=== PATIENT | female | born 1990 | race Two or more races ===

== ENCOUNTER 2024-04-15 19:06 | Inpatient (IN) | payer OTHER ==
[~2024-04-15] VITALS: Ht 165.1 cm; Wt 111.4 kg
[2024-04-15 20:18] LABS: BASOPHILS % (AUTO) 0.1 % (0.0-2.0); EOSINOPHILS % (AUTO) 0.3 % (1.0-6.0); HEMATOCRIT 33.8 % (36-46); HEMOGLOBIN 10.8 g/dL (12.0-16.0); LYMPHOCYTES # (AUTO) 2.2 K/uL (1.0-4.8); LYMPHOCYTES % (AUTO) 14.5 % (22.0-44.0); MEAN CORPUSCULAR HEMOGLOBIN 23.2 pg (26.0-34.0); MEAN CORPUSCULAR VOLUME 73 fL (80-100); MONOCYTES # (AUTO) 0.8 K/uL (0.1-1.0); MONOCYTES % (AUTO) 5.4 % (2.0-9.0); NEUTROPHILS # (AUTO) 12.1 K/uL (1.8-7.7); NEUTROPHILS % (AUTO) 79.7 % (40.0-70.0); PLATELET COUNT (AUTO) 323 K/uL (150-450); RED BLOOD CELL COUNT(AUTO) 4.66 MIL/uL (4.00-5.20); RED CELL DISTRIBUTION WIDTH 19.1 % (11.5-14.5); WHITE BLOOD COUNT (AUTO) 15.2 K/uL (4.5-11.0)
[2024-04-15 20:31] LABS: ANION GAP 8 mmol/L (8-16); CALCIUM, TOTAL 8.4 mg/dL (8.8-10.5); CARBON DIOXIDE 27 mmol/L (22-29); CHLORIDE 103 mmol/L (98-107); CREATININE 0.56 mg/dL (0.60-1.30); GLOMERULAR FILTR. RATE CALC > 60 mL/min (>60); GLUCOSE,RANDOM 100 mg/dL (70-110); SODIUM SERUM 138 mmol/L (136-145); UREA NITROGEN, BLOOD 7 mg/dL (7-18)
[2024-04-15 22:45] VITALS: BP 105/97; PULSE 78; RESP 18; TEMP 98.1; O2SAT 95
[2024-04-16] MEDS ORDERED: SODIUM CHLORIDE 3% 15 ML NEB SOLUTION NEB ONE ×3 (00:49→23:10)
[2024-04-16] MEDS ORDERED: INFLUENZA VIRUS VACCINE TVS (6MO+) 2024-25/PF 45 MCG/0.5 ML SYRINGE IM. ONE (03:00)
[2024-04-16 05:02] VITALS: BP 114/63; PULSE 84; RESP 20; TEMP 97.8; O2SAT 98
[2024-04-16 08:51] VITALS: BP 96/52; PULSE 79; RESP 18; TEMP 98.3; O2SAT 94
[2024-04-16 09:30] VITALS: BP 97/58; PULSE 86; O2SAT 96
[2024-04-16 11:18] LABS: MTB PCR w/Rif. Resistance-SPUT NOT DETECTED (Not Detectd)
[2024-04-16] MEDS ORDERED: BUPRENORPHINE HCL/NALOXONE HCL 8-2 MG SUBLINGUAL TABLET SL SCH (11:30)
[2024-04-16] MEDS: PRENATAL NO.137/IRON/FOLIC ACID TABLET PO SCH (14:20)
[2024-04-16 16:01] LABS: APPEARANCE,URINE CLEAR (CLEAR); BILIRUBIN,URINE NEGATIVE (NEGATIVE); COLOR,URINE LIGHT YELLOW (YELLOW); GLUCOSE, URINE (UA) NEGATIVE (NEGATIVE); KETONES,URINE NEGATIVE (NEGATIVE); LEUKOCYTE ESTERASE ,URINE TRACE (NEGATIVE); NITRATE,URINE NEGATIVE (NEGATIVE); OCCULT BLOOD,URINE NEGATIVE (NEGATIVE); PROTEIN,URINE NEGATIVE (NEGATIVE); SPECIFIC GRAVITIY, URINE 1.011 (1.003-1.030); UROBILINOGEN,URINE <=1.0 mg/dL (<=1.0)
[2024-04-16 16:20] LABS: AMPHET/METH SCREEN,URINE POSITIVE (NEGATIVE); BARBITURATE SCREEN, URINE NEGATIVE (NEGATIVE); BENZODIAZEPINES SCREEN,URINE NEGATIVE (NEGATIVE); CANNABINOID SCREEN,URINE NEGATIVE (NEGATIVE); COCAINE SCREEN,URINE NEGATIVE (NEGATIVE); METHADONE SCREEN, URINE NEGATIVE (NEGATIVE); OPIATE SCREEN,URINE NEGATIVE (NEGATIVE); PHENCYCLIDINE SCREEN,URINE NEGATIVE (NEGATIVE)
[2024-04-16 16:21] LABS: ALCOHOL, URINE DRUG SCREEN NEGATIVE (NEGATIVE)
[2024-04-16 16:26] LABS: BACTERIA,URINE Few /HPF (None Seen); RBC,URINE 0-2 /HPF (0-2); SQUAMOUS EPITHELIAL CELL,UR Few /LPF (None Seen)
[2024-04-16 20:38] VITALS: BP 113/68; PULSE 92; RESP 18; TEMP 98.3; O2SAT 95
[2024-04-17 03:45] VITALS: BP 116/76; PULSE 88; RESP 18; TEMP 98; O2SAT 95
[2024-04-17 07:06] LABS: HIV 1-2 SCREEN 4TH GEN W/RFLX Non Reactive (Non Reactive)
[2024-04-17 07:51] VITALS: BP 99/46; PULSE 90; RESP 18; TEMP 97.9; O2SAT 100
[2024-04-17 09:28] LABS: MTB PCR w/Rif. Resistance-SPUT NOT DETECTED (Not Detectd)
[2024-04-17 20:27] VITALS: BP 132/74; PULSE 95; RESP 18; TEMP 98.1; O2SAT 96
[2024-04-18 05:10] VITALS: BP 121/76; PULSE 80; RESP 18; TEMP 97.8; O2SAT 98
[2024-04-18 06:27] LABS: BASOPHILS % (AUTO) 0.1 % (0.0-2.0); EOSINOPHILS % (AUTO) 0.7 % (1.0-6.0); HEMATOCRIT 35.9 % (36-46); HEMOGLOBIN 11.6 g/dL (12.0-16.0); LYMPHOCYTES # (AUTO) 3.9 K/uL (1.0-4.8); LYMPHOCYTES % (AUTO) 19.7 % (22.0-44.0); MEAN CORPUSCULAR HEMOGLOBIN 23.4 pg (26.0-34.0); MEAN CORPUSCULAR HGB CONC 32.4 G/dL (31.0-37.0); MEAN CORPUSCULAR VOLUME 72 fL (80-100); MONOCYTES # (AUTO) 0.9 K/uL (0.1-1.0); MONOCYTES % (AUTO) 4.5 % (2.0-9.0); PLATELET COUNT (AUTO) 360 K/uL (150-450); RED BLOOD CELL COUNT(AUTO) 4.97 MIL/uL (4.00-5.20); RED CELL DISTRIBUTION WIDTH 18.9 % (11.5-14.5)
[2024-04-18 09:17] VITALS: BP 127/78; PULSE 90; RESP 19; TEMP 97.3; O2SAT 98
[2024-04-18] MEDS: CEPHALEXIN MONOHYDRATE 500 MG CAPSULE PO SCH (16:47)
[2024-04-18 19:27] VITALS: BP 122/77; PULSE 92; RESP 18; TEMP 97.9; O2SAT 96
[2024-04-19 04:39] VITALS: BP 121/73; PULSE 83; RESP 18; TEMP 98; O2SAT 97
[2024-04-19 07:32] LABS: BASOPHILS % (AUTO) 0.1 % (0.0-2.0); EOSINOPHILS % (AUTO) 0.9 % (1.0-6.0); HEMATOCRIT 37.8 % (36-46); HEMOGLOBIN 12.4 g/dL (12.0-16.0); LYMPHOCYTES # (AUTO) 3.5 K/uL (1.0-4.8); LYMPHOCYTES % (AUTO) 20.3 % (22.0-44.0); MEAN CORPUSCULAR HEMOGLOBIN 23.6 pg (26.0-34.0); MEAN CORPUSCULAR HGB CONC 32.7 G/dL (31.0-37.0); MEAN CORPUSCULAR VOLUME 72 fL (80-100); MONOCYTES # (AUTO) 0.7 K/uL (0.1-1.0); MONOCYTES % (AUTO) 4.3 % (2.0-9.0); NEUTROPHILS # (AUTO) 12.9 K/uL (1.8-7.7); NEUTROPHILS % (AUTO) 74.4 % (40.0-70.0); PLATELET COUNT (AUTO) 374 K/uL (150-450); RED BLOOD CELL COUNT(AUTO) 5.23 MIL/uL (4.00-5.20); RED CELL DISTRIBUTION WIDTH 18.8 % (11.5-14.5); WHITE BLOOD COUNT (AUTO) 17.4 K/uL (4.5-11.0)
[2024-04-19 08:07] VITALS: BP 146/75; PULSE 86; RESP 18; TEMP 98; O2SAT 97
[2024-04-19 09:18] LABS: RBC MORPHOLOGY COMMENT ABNORMAL RBC MORPH
[2024-04-19 12:00] VITALS: RESP 18
[2024-04-19 17:34] VITALS: RESP 18
[2024-04-19 20:40] VITALS: BP 105/75; PULSE 89; RESP 18; TEMP 98.1; O2SAT 96
[2024-04-20 04:40] VITALS: BP 112/64; PULSE 76; RESP 18; TEMP 97.9; O2SAT 99
[2024-04-20 07:06] LABS: BASOPHILS % (AUTO) 0.2 % (0.0-2.0); EOSINOPHILS % (AUTO) 0.7 % (1.0-6.0); HEMATOCRIT 36.9 % (36-46); HEMOGLOBIN 11.8 g/dL (12.0-16.0); LYMPHOCYTES # (AUTO) 3.6 K/uL (1.0-4.8); LYMPHOCYTES % (AUTO) 17.7 % (22.0-44.0); MEAN CORPUSCULAR HEMOGLOBIN 23.5 pg (26.0-34.0); MEAN CORPUSCULAR HGB CONC 32.1 G/dL (31.0-37.0); MEAN CORPUSCULAR VOLUME 73 fL (80-100); MONOCYTES # (AUTO) 0.9 K/uL (0.1-1.0); MONOCYTES % (AUTO) 4.6 % (2.0-9.0); NEUTROPHILS # (AUTO) 15.5 K/uL (1.8-7.7); NEUTROPHILS % (AUTO) 76.8 % (40.0-70.0); PLATELET COUNT (AUTO) 362 K/uL (150-450); RED BLOOD CELL COUNT(AUTO) 5.04 MIL/uL (4.00-5.20); RED CELL DISTRIBUTION WIDTH 18.9 % (11.5-14.5); WHITE BLOOD COUNT (AUTO) 20.2 K/uL (4.5-11.0)
[2024-04-20 08:05] VITALS: BP 96/52; PULSE 94; RESP 17; TEMP 97.7; O2SAT 99
[2024-04-20 08:24] LABS: RBC MORPHOLOGY COMMENT ABNORMAL RBC MORPH
[2024-04-20 20:08] VITALS: BP 126/75; PULSE 92; RESP 18; TEMP 97.6; O2SAT 97
[2024-04-21 05:53] VITALS: BP 130/82; PULSE 94; RESP 18; TEMP 98.1; O2SAT 96
[2024-04-21 06:45] LABS: BASOPHILS % (AUTO) 0.1 % (0.0-2.0); EOSINOPHILS % (AUTO) 0.8 % (1.0-6.0); HEMATOCRIT 36.8 % (36-46); HEMOGLOBIN 11.9 g/dL (12.0-16.0); LYMPHOCYTES # (AUTO) 3.6 K/uL (1.0-4.8); LYMPHOCYTES % (AUTO) 19.8 % (22.0-44.0); MEAN CORPUSCULAR HEMOGLOBIN 23.5 pg (26.0-34.0); MEAN CORPUSCULAR HGB CONC 32.3 G/dL (31.0-37.0); MEAN CORPUSCULAR VOLUME 73 fL (80-100); MONOCYTES # (AUTO) 0.9 K/uL (0.1-1.0); NEUTROPHILS # (AUTO) 13.7 K/uL (1.8-7.7); NEUTROPHILS % (AUTO) 74.3 % (40.0-70.0); PLATELET COUNT (AUTO) 367 K/uL (150-450); RED BLOOD CELL COUNT(AUTO) 5.06 MIL/uL (4.00-5.20); RED CELL DISTRIBUTION WIDTH 18.6 % (11.5-14.5); WHITE BLOOD COUNT (AUTO) 18.4 K/uL (4.5-11.0)
[2024-04-21 08:00] VITALS: BP 122/76; PULSE 90; RESP 18; TEMP 97.9; O2SAT 99
[2024-04-21 08:06] LABS: QUANTIFERON+, Nil Value 0.01 IU/mL; QUANTIFERON+,TB1 Antigen Value 6.75 IU/mL; QUANTIFERON+,TB2 Antigen Value 5.32 IU/mL; QUANTIFERON, TB GOLD PLUS Positive (Negative)
[2024-04-21 08:33] LABS: RBC MORPHOLOGY COMMENT ABNORMAL RBC MORPH
[2024-04-21 20:14] VITALS: BP 128/93; PULSE 83; RESP 18; TEMP 97.7; O2SAT 98
[2024-04-22 05:47] VITALS: BP 120/75; PULSE 87; RESP 18; TEMP 98; O2SAT 98
[2024-04-22 06:11] LABS: BASOPHILS % (AUTO) 0.1 % (0.0-2.0); EOSINOPHILS % (AUTO) 0.7 % (1.0-6.0); HEMATOCRIT 37.4 % (36-46); HEMOGLOBIN 12.1 g/dL (12.0-16.0); LYMPHOCYTES # (AUTO) 3.9 K/uL (1.0-4.8); LYMPHOCYTES % (AUTO) 18.8 % (22.0-44.0); MEAN CORPUSCULAR HEMOGLOBIN 23.6 pg (26.0-34.0); MEAN CORPUSCULAR HGB CONC 32.4 G/dL (31.0-37.0); MEAN CORPUSCULAR VOLUME 73 fL (80-100); MONOCYTES # (AUTO) 0.9 K/uL (0.1-1.0); MONOCYTES % (AUTO) 4.6 % (2.0-9.0); NEUTROPHILS # (AUTO) 15.8 K/uL (1.8-7.7); NEUTROPHILS % (AUTO) 75.8 % (40.0-70.0); PLATELET COUNT (AUTO) 343 K/uL (150-450); RED BLOOD CELL COUNT(AUTO) 5.13 MIL/uL (4.00-5.20); RED CELL DISTRIBUTION WIDTH 18.6 % (11.5-14.5); WHITE BLOOD COUNT (AUTO) 20.8 K/uL (4.5-11.0)
[2024-04-22 07:59] LABS: RBC MORPHOLOGY COMMENT ABNORMAL RBC MORPH
[2024-04-22 08:24] VITALS: BP 115/76; PULSE 82; RESP 20; TEMP 98.4; O2SAT 97
[2024-04-22 19:07] LABS: APPEARANCE,URINE CLEAR (CLEAR); BILIRUBIN,URINE NEGATIVE (NEGATIVE); COLOR,URINE LIGHT YELLOW (YELLOW); GLUCOSE, URINE (UA) NEGATIVE (NEGATIVE); KETONES,URINE NEGATIVE (NEGATIVE); LEUKOCYTE ESTERASE ,URINE TRACE (NEGATIVE); NITRATE,URINE NEGATIVE (NEGATIVE); OCCULT BLOOD,URINE NEGATIVE (NEGATIVE); PH,URINE 6.5 (5.0-8.0); PROTEIN,URINE NEGATIVE (NEGATIVE); SPECIFIC GRAVITIY, URINE 1.009 (1.003-1.030); UROBILINOGEN,URINE <=1.0 mg/dL (<=1.0)
[2024-04-22 19:32] LABS: BACTERIA,URINE Rare /HPF (None Seen); RBC,URINE None Seen /HPF (0-2); SQUAMOUS EPITHELIAL CELL,UR Few /LPF (None Seen); WBC,URINE 0-2 /HPF (0-5)
[2024-04-22 19:43] VITALS: BP 97/68; PULSE 98; RESP 18; TEMP 98.4; O2SAT 96
[2024-04-23 05:22] VITALS: BP 131/76; PULSE 78; RESP 18; TEMP 97.9; O2SAT 100
[2024-04-23 07:11] LABS: BASOPHILS % (AUTO) 0.2 % (0.0-2.0); EOSINOPHILS % (AUTO) 0.6 % (1.0-6.0); HEMATOCRIT 35.9 % (36-46); HEMOGLOBIN 11.8 g/dL (12.0-16.0); LYMPHOCYTES # (AUTO) 3.8 K/uL (1.0-4.8); LYMPHOCYTES % (AUTO) 19.1 % (22.0-44.0); MEAN CORPUSCULAR HGB CONC 32.8 G/dL (31.0-37.0); MEAN CORPUSCULAR VOLUME 73 fL (80-100); MONOCYTES # (AUTO) 0.9 K/uL (0.1-1.0); MONOCYTES % (AUTO) 4.8 % (2.0-9.0); NEUTROPHILS # (AUTO) 15.1 K/uL (1.8-7.7); NEUTROPHILS % (AUTO) 75.3 % (40.0-70.0); PLATELET COUNT (AUTO) 353 K/uL (150-450); RED BLOOD CELL COUNT(AUTO) 4.91 MIL/uL (4.00-5.20)
[2024-04-23 09:06] VITALS: BP 104/61; PULSE 95; RESP 19; TEMP 97.7; O2SAT 100
[2024-04-23 09:06] LABS: RBC MORPHOLOGY COMMENT ABNORMAL RBC MORPH
[2024-04-23 20:07] VITALS: BP 122/71; PULSE 95; RESP 18; TEMP 97.8; O2SAT 97
[2024-04-24 05:18] VITALS: BP 116/76; PULSE 82; RESP 18; TEMP 98; O2SAT 97
[2024-04-24 06:29] LABS: BASOPHILS % (AUTO) 0.5 % (0.0-2.0); EOSINOPHILS % (AUTO) 0.6 % (1.0-6.0); HEMOGLOBIN 11.4 g/dL (12.0-16.0); LYMPHOCYTES # (AUTO) 3.8 K/uL (1.0-4.8); LYMPHOCYTES % (AUTO) 19.9 % (22.0-44.0); MEAN CORPUSCULAR HEMOGLOBIN 23.8 pg (26.0-34.0); MEAN CORPUSCULAR HGB CONC 32.5 G/dL (31.0-37.0); MEAN CORPUSCULAR VOLUME 73 fL (80-100); NEUTROPHILS # (AUTO) 14.3 K/uL (1.8-7.7); PLATELET COUNT (AUTO) 339 K/uL (150-450); RED BLOOD CELL COUNT(AUTO) 4.78 MIL/uL (4.00-5.20); RED CELL DISTRIBUTION WIDTH 18.8 % (11.5-14.5); WHITE BLOOD COUNT (AUTO) 19.3 K/uL (4.5-11.0)
[2024-04-24 07:52] VITALS: BP 112/69; PULSE 77; RESP 18; TEMP 97.8; O2SAT 100
[2024-04-24 08:05] LABS: RBC MORPHOLOGY COMMENT ABNORMAL RBC MORPH
[2024-04-24 17:21] LABS: APPEARANCE,URINE CLEAR (CLEAR); BILIRUBIN,URINE NEGATIVE (NEGATIVE); COLOR,URINE LIGHT YELLOW (YELLOW); GLUCOSE, URINE (UA) NEGATIVE (NEGATIVE); KETONES,URINE NEGATIVE (NEGATIVE); LEUKOCYTE ESTERASE ,URINE SMALL (NEGATIVE); NITRATE,URINE NEGATIVE (NEGATIVE); OCCULT BLOOD,URINE NEGATIVE (NEGATIVE); PROTEIN,URINE NEGATIVE (NEGATIVE); SPECIFIC GRAVITIY, URINE 1.008 (1.003-1.030); UROBILINOGEN,URINE <=1.0 mg/dL (<=1.0)
[2024-04-24 17:33] LABS: BACTERIA,URINE Few /HPF (None Seen); RBC,URINE 0-2 /HPF (0-2); SQUAMOUS EPITHELIAL CELL,UR Few /LPF (None Seen)
[2024-04-24 19:30] VITALS: BP 129/76; PULSE 84; RESP 18; TEMP 98; O2SAT 96
[2024-04-25 05:32] VITALS: BP 105/66; PULSE 76; RESP 18; TEMP 97.9; O2SAT 96
[2024-04-25 08:55] VITALS: BP 96/60; PULSE 81; RESP 20; TEMP 97.7; O2SAT 97
[2024-04-25 20:36] VITALS: BP 116/65; PULSE 86; RESP 18; TEMP 98.2; O2SAT 96
[2024-04-26 05:12] VITALS: BP 115/70; PULSE 77; RESP 18; TEMP 98.2; O2SAT 99
[2024-04-26 09:16] VITALS: BP 96/62; PULSE 73; RESP 18; TEMP 98.5; O2SAT 98
[2024-04-26] MEDS ORDERED: PREN-154 PO (13:16)
== END 2024-04-26 20:10 | DRG 832 ==
LOC: EMS 19:06 → EDH 22:09 → 6S 22:45 → 6N 04-23 17:09
PROVIDERS: ADMIT Internal Medicine; ATTEND Internal Medicine
DX: O98.012 Tuberculosis complicating pregnancy, second trimester (principal); A15.9 Respiratory tuberculosis unspecified; O99.112 Other diseases of the blood and blood-forming organs and certain disorders involving the immune mechanism complicating pregnancy, second trimester; O99.322 Drug use complicating pregnancy, second trimester; O99.012 Anemia complicating pregnancy, second trimester; D72.829 Elevated white blood cell count, unspecified; F15.90 Other stimulant use, unspecified, uncomplicated; E66.01 Morbid (severe) obesity due to excess calories; O99.212 Obesity complicating pregnancy, second trimester; Z3A.20 20 weeks gestation of pregnancy
CPT/HCPCS: 71045; 76805; 80048; 80307; 81001; 84703; 85025; 86480; 87015; 87040; 87086; 87206; 87389; 87556; 94640; 99285; 36415-L1; 36415-TC